=== PATIENT | male | born 1970 | race Caucasian/White ===

== ENCOUNTER 2019-01-04 13:20 | Inpatient (IN) | payer MEDICAID, OTHER ==
[2019-01-04] MEDS ORDERED: ZIPRASIDONE 20 MG VIAL IM STA (13:27)
[2019-01-04] MEDS ORDERED: LORazepam 2 MG/ML INJ IV STA (13:28)
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
[2019-01-04] MEDS ORDERED: LORazepam 2 MG/ML INJ IM STA (13:45)
[2019-01-04 16:02] LABS: Basophils % (A) 0 %; Eosinophils # (A) 0.1 k/uL (0-0.7); Eosinophils % (A) 1 %; HCT 39.9 % (39.0-53.0); HGB 13.8 gm/dL (13.0-17.5); Lymphocytes # (A) 1.1 k/uL (1.0-4.8); Lymphocytes % (A) 10 %; MCHC 34.5 g/dL (31.0-37.0); Mean Platelet Volume 7.2; Monocytes # (A) 0.5 k/uL (0-1.0); Monocytes % (A) 4 %; Neutrophils # (A) 9.4 k/uL (1.3-7.7); Neutrophils % (A) 84 %; Platelet Count 300 k/uL (150-450); RBC 4.59 m/uL (4.30-5.90); RDW 13.1 % (11.5-15.5); WBC 11.1 k/uL (3.8-10.6)
[2019-01-04 16:10] LABS: ALT 59 U/L (21-72); AST 35 U/L (17-59); Albumin 4.1 g/dL (3.5-5.0); Alcohol <10 mg/dL; Alkaline Phosphatase 74 U/L (38-126); Anion Gap 10 mmol/L; Blood Urea Nitrogen 13 mg/dL (9-20); Calcium 9.4 mg/dL (8.4-10.2); Carbon Dioxide 22 mmol/L (22-30); Chloride 107 mmol/L (98-107); Glucose 87 mg/dL (74-99); Potassium 3.5 mmol/L (3.5-5.1); Sodium 139 mmol/L (137-145); Total Bilirubin 1.1 mg/dL (0.2-1.3); Total Protein 6.9 g/dL (6.3-8.2)
[2019-01-04 17:17] LABS: Amphetamine Screen,Urine Not Detected (NotDetected); Barbiturate Screen,Urine Not Detected (NotDetected); Benzodiazepines Screen,Urine Not Detected (NotDetected); Cocaine Screen,Urine Not Detected (NotDetected); Methadone Screen, Urine Not Detected (NotDetected); Opiate Screen,Urine Not Detected (NotDetected); Oxycodone Screen, Urine Not Detected (NotDetected); Phencyclidine Screen,Urine Not Detected (NotDetected); Tricyclic Antidepressant,Urine Not Detected (NotDetected); Urn Cannabinoid Scrn Detected (NotDetected)
[2019-01-04] MEDS ORDERED: METOPROLOL SUCCINATE (ER) 50 MG TAB.ER.24H PO STA (22:14)
[2019-01-04] MEDS ORDERED: MAG HYDROX/AL HYDROX/SIMETH 30 ML CUP PO PRN (22:52)
[2019-01-04] MEDS ORDERED: MAGNESIUM HYDROXIDE 2,400 MG/10 ML CUP PO PRN (22:52)
[2019-01-04] MEDS ORDERED: ZIPRASIDONE 20 MG VIAL IM PRN (22:52)
[2019-01-05] MEDS: LORazepam 1 MG TAB PO PRN ×3 (00:39→20:53)
[2019-01-05] MEDS: ACETAMINOPHEN TAB 325 MG TAB PO PRN ×5 (00:40→22:23)
[2019-01-05 09:15] LABS: Basophils # (A) 0.1 k/uL (0-0.2); Basophils % (A) 1 %; Eosinophils # (A) 0.1 k/uL (0-0.7); Eosinophils % (A) 2 %; HCT 42.3 % (39.0-53.0); Lymphocytes # (A) 3.7 k/uL (1.0-4.8); Lymphocytes % (A) 41 %; MCH 30.2 pg (25.0-35.0); MCHC 33.1 g/dL (31.0-37.0); MCV 91.3 fL (80.0-100.0); Mean Platelet Volume 6.8; Monocytes # (A) 0.5 k/uL (0-1.0); Monocytes % (A) 6 %; Neutrophils # (A) 4.5 k/uL (1.3-7.7); Neutrophils % (A) 50 %; Platelet Count 337 k/uL (150-450); RBC 4.63 m/uL (4.30-5.90); RDW 12.9 % (11.5-15.5)
[2019-01-05 09:29] LABS: ALT 56 U/L (21-72); AST 63 U/L (17-59); Alkaline Phosphatase 79 U/L (38-126); Anion Gap 6 mmol/L; Bilirubin, Delta 0.3 mg/dL (0.0-0.2); Bilirubin,Unconjugated 0.4 mg/dL (0.0-1.1); Blood Urea Nitrogen 15 mg/dL (9-20); Calcium 9.3 mg/dL (8.4-10.2); Carbon Dioxide 30 mmol/L (22-30); Chloride 107 mmol/L (98-107); Cholesterol 128 mg/dL (<200); Glucose 105 mg/dL (74-99); HDL Cholesterol 38 mg/dL (40-60); LDL Cholesterol,Calculated 75 mg/dL (0-99); Potassium 4.4 mmol/L (3.5-5.1); Sodium 143 mmol/L (137-145); Total Bilirubin 0.7 mg/dL (0.2-1.3); Triglycerides 74 mg/dL (<150)
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
[2019-01-05] MEDS: PANTOPRAZOLE 40 MG TABLET PO SCH ×2 (10:25→16:46)
[2019-01-05] MEDS: SERTRALINE 100 MG TAB PO SCH (10:25)
--- NOTE | 2019-01-05 18:05 | P.CONS ---
History of Present Illness - Reason for Consult Consult date: 01/05/19 - History of Present Illness The patient is a 48-year-old male with a PMH of bipolar disorder presented to the ED and please custody for aggressive and disorganized behavior. As per documentation, the patient was yelling that god is good and was uncooperative with police. The patient was seen and examined in the mental health unit. He reports that he is admitted here since he praised God far too much. He notes that he had whole-body sensation after which she felt that god is going to fix all of his problems and help him fix the situation with his mother. The patient otherwise denied any active complaints including chest pain, shortness of breath, fever, chills, cough. He also denied abdominal pain, nausea, vomiting. Review of Systems Pertinent positives and negatives as discussed in HPI, a complete review of systems was performed and all other systems are negative. Past Medical History Past Medical History: Hypertension History of Any Multi-Drug Resistant Organisms: None Reported Past Surgical History: No Surgical Hx Reported Additional Past Surgical History / Comment(s): oral surgery Past Anesthesia/Blood Transfusion Reactions: No Reported Reaction Past Psychological History: Depression Smoking Status: Former smoker Past Alcohol Use History: Occasional Additional Past Alcohol Use History / Comment(s): Patient states that he drinks a "couple of beers" once a month. Past Drug Use History: Marijuana Additional Drug Use History / Comment(s): Pt states that he smokes MJ twice we ekly- a vape pen amount - Past Family History Father Family Medical History: Cancer, COPD, Coronary Artery Disease (CAD), CVA/TIA, Hyperlipidemia, Hypertension, Prostate Disorder Additional Family Medical History / Comment(s): Bladder and Prostate Cancer, Kidney Failure, Knee replacement Mother Family Medical History: CVA/TIA, Hypertension, Myocardial Infarction ([place]) Additional Family Medical History / Comment(s): Cerebal Hemorrage in 2008, Multiple surgeries Medications and Allergies Home Medications Medication Instructions Recorded Confirmed Type Metoprolol Succinate (ER) [Toprol 50 mg PO DAILY 01/04/19 01/04/19 History XL] Omeprazole [PriLOSEC] 20 mg PO BID 01/04/19 01/04/19 History Sertraline [Zoloft] 100 mg PO DAILY 01/04/19 01/04/19 History buPROPion HCL [Wellbutrin XL] 300 mg PO DAILY 01/04/19 01/04/19 History Allergies Allergy/AdvReac Type Severity Reaction Status Date / Time No Known Allergies Allergy Verified 01/05/19 00:17 Physical Exam Vitals: Vital Signs Temp Pulse Pulse Resp BP BP Pulse Ox 01/05/19 06:47 98.4 F 94 18 132/84 01/05/19 00:30 97.7 F 01/04/19 23:10 100 F H 82 16 127/71 99 01/04/19 22:39 85 16 118/65 96 Intake and Output 01/05/19 01/05/19 01/05/19 06:59 14:59 22:59 Other: Weight 89.6 kg General: non toxic, no distress, appears at stated age, normal weight Derm: no unusual rashes/lesions no unusual ecchymoses, warm, dry Head: atraumatic, normocephalic, symmetric Eyes: EOMI, no lid lag, anicteric sclera, pupils equal round reactive to light ENT: Nose and ears atraumatic, no thrush, no pharyngeal erythema Neck: No thyromegaly, no cervical lymphadenopathy, trachea midline, supple Mouth: no lip lesion, mucus membranes moist Cardiovascular: S1S2 reg, no murmur, positive posterior tibial pulse bilateral, no edema, capillary refill less than 2 seconds Lungs: CTA bilateral, no rhonchi, no rales , no accessory muscle use Abdominal: soft, nontender to palpation, no guarding, no appreciable organomegaly, normal bowel sounds Ext: no gross muscle atrophy, muscle strength 5 out of 5 in all 4 extremities grossly, no contractures, Neuro: CN II-XI grossly intact, light touch intact all 4 extremities, finger to nose within normal limits, Psych: Alert, oriented, labile mood, swings between smiling and crying Results CBC & Chem 7: 01/05/19 08:25 01/05/19 08:25 Labs: Abnormal Lab Results - Last 24 Hours (Table) 01/05/19 Range/Units 08:25 Glucose 105 H (74-99) mg/dL Delta Bilirubin 0.3 H (0.0-0.2) mg/dL AST 63 H (17-59) U/L HDL Cholesterol 38 L (40-60) mg/dL Assessment and Plan Plan: Marijuana abuse -Patient advised on a importance of cessation Bipolar disorder -As per psychiatry Thank you for allowing us to participate in the care of this patient. We will follow peripherally. Do not hesitate to contact us with questions. Someone can be reached from the [facility] hospitalist group at all hours of the day at [phone].
[2019-01-05 19:04] LABS: Hemoglobin A1C 5.6 % (4.0-6.0)
[2019-01-05] MEDS: lamoTRIgine 25 MG TAB PO SCH (20:51)
[2019-01-06] MEDS: ACETAMINOPHEN TAB 325 MG TAB PO PRN ×4 (03:59→20:56)
[2019-01-06] MEDS: SERTRALINE 100 MG TAB PO SCH (08:11)
[2019-01-06] MEDS: PANTOPRAZOLE 40 MG TABLET PO SCH ×2 (08:11→17:29)
[2019-01-06] MEDS: LORazepam 1 MG TAB PO PRN ×2 (08:14→16:46)
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
[2019-01-06] MEDS: METOPROLOL SUCCINATE (ER) 50 MG TAB.ER.24H PO SCH (09:33)
[2019-01-06] MEDS: IBUPROFEN 600 MG TAB PO PRN ×2 (09:34→16:46)
--- NOTE | 2019-01-06 14:03 | XR ---
EXAMINATION TYPE: XR chest 2V DATE OF EXAM: 01/06/2019 COMPARISON: NONE HISTORY: Pain, trauma TECHNIQUE: Frontal and lateral views of the chest are obtained. FINDINGS: There is no focal air space opacity, pleural effusion, or pneumothorax seen. The cardiac silhouette size is within normal limits. The osseous structures are intact. IMPRESSION: No acute cardiopulmonary process.
--- NOTE | 2019-01-06 14:09 | XR ---
Left shoulder HISTORY: Trauma and pain 4views of the left shoulder on 4 images correlated to chest x-ray same date Bone mineralization, joint spaces and alignment are maintained. IMPRESSION: No fracture or dislocation.
[2019-01-06] MEDS: MULTIVITAMINS, THERA 1 EACH TAB PO SCH (14:13)
[2019-01-06] MEDS: lamoTRIgine 25 MG TAB PO SCH (22:35)
[2019-01-06] MEDS: MELATONIN 5 MG TABLET PO SCH (22:35)
[2019-01-07] MEDS: LORazepam 1 MG TAB PO PRN ×3 (00:13→18:08)
[2019-01-07] MEDS: IBUPROFEN 600 MG TAB PO PRN ×2 (00:13→08:17)
[2019-01-07] MEDS: ACETAMINOPHEN TAB 325 MG TAB PO PRN ×2 (05:56→18:08)
[2019-01-07] MEDS: PANTOPRAZOLE 40 MG TABLET PO SCH ×2 (08:15→18:03)
[2019-01-07] MEDS: METOPROLOL SUCCINATE (ER) 50 MG TAB.ER.24H PO SCH (08:15)
[2019-01-07] MEDS: SERTRALINE 100 MG TAB PO SCH (08:15)
[2019-01-07] MEDS: MELOXICAM 7.5 MG TAB PO SCH ×2 (11:08→23:17)
--- NOTE | 2019-01-07 12:01 | P.PN ---
Progress Note - Text Progress Note Date: 01/07/19 Interval history: Chart reviewed and discussed with nursing staff today. Interviewed patient one-on-one and discussed his medications and his pain issues around his arms and thorax. He is still in denial why he is in a psychiatric hospital and feels that he should not be here. Mental status examination: This is a 48-year-old male who appears casual and older than his stated age. Speech and language rapid expressive soft. Attitude and behavior appears to be guarded and with Don. Mood is depressed anxious irritable and hopelessness. Affect is labile. Orientation person place and time and not situation. Thought content within normal. Risk factors he states he is not suicidal homicidal at the current time. Perception within normal denies any auditory or visual tactile hallucinations. Thought process is concrete. Concentration and to engine span and impaired per obse rvation and interview with the patient. Remote and recent memory within normal. Intelligence average. Judgment and insight fair. Plan: We'll titrate his Lamictal today to 50 mg by mouth daily at bedtime. He remains on 15 minute checks while on the mental health unit on [address] [place]. We'll follow observed for any other psychiatric medication needs for mood and thought behavior. Will follow observed.
[2019-01-07] MEDS: MULTIVITAMINS, THERA 1 EACH TAB PO SCH (12:05)
[2019-01-07] MEDS ORDERED: lamoTRIgine 25 MG TAB PO SCH (21:00)
[2019-01-07] MEDS: MELATONIN 5 MG TABLET PO SCH (23:17)
[2019-01-08] MEDS: ACETAMINOPHEN TAB 325 MG TAB PO PRN ×3 (01:24→17:14)
[2019-01-08] MEDS: LORazepam 1 MG TAB PO PRN ×3 (02:42→19:25)
[2019-01-08] MEDS: PANTOPRAZOLE 40 MG TABLET PO SCH ×2 (08:10→17:15)
[2019-01-08] MEDS: MELOXICAM 7.5 MG TAB PO SCH ×2 (08:10→22:12)
[2019-01-08] MEDS: METOPROLOL SUCCINATE (ER) 50 MG TAB.ER.24H PO SCH (08:10)
[2019-01-08] MEDS: SERTRALINE 100 MG TAB PO SCH (08:10)
[2019-01-08] MEDS: MULTIVITAMINS, THERA 1 EACH TAB PO SCH (10:38)
--- NOTE | 2019-01-08 11:42 | P.PN ---
Progress Note - Text Progress Note Date: 01/08/19 Interval history: Chart reviewed this morning and discussed with nursing staff in regards to he still has pain complaints on his left and right thoracic region from bruising. He states that the Mobic has not helped and he continues to have uncomfortable bruising over his arms and his chest region. He is going to groups and interactive and participating in uriarte milieu therapeutic environment. Mental status examination: This is a 48-year-old male who is casual and appears his stated age. Speech language is spontaneous today. Attitude and behavior appears cooperative but withdrawn in nature at times. Mood remains depressed anxious irritable. Affect lively labile in nature. Orientation person place time and situation. Thought content within normal periods risk factors denies suicidal or homicidal ideation. Perception within normal. Thought content concrete circumstantial and tangential. Concentration attention span within normal. Recent remote memory within normal intelligence is average. Judgment fair and insight fair to be still has a lack of understanding moya in the psychiatric hospital. Plan: Increase his Lamictal to 75 mg by mouth daily at bedtime for his mood stability. Ice pack for his rooster areas 20 minutes on 20 minutes off. Continue his other psychiatric medications remain on 15 minute checks on the mental health unit [address] [place] [address].
[2019-01-08] MEDS: lamoTRIgine 25 MG TAB PO SCH (22:12)
[2019-01-08] MEDS: MELATONIN 5 MG TABLET PO SCH (22:54)
[2019-01-09] MEDS: ACETAMINOPHEN TAB 325 MG TAB PO PRN ×4 (01:57→20:11)
[2019-01-09] MEDS: SERTRALINE 100 MG TAB PO SCH (08:10)
[2019-01-09] MEDS: METOPROLOL SUCCINATE (ER) 50 MG TAB.ER.24H PO SCH (08:10)
[2019-01-09] MEDS: PANTOPRAZOLE 40 MG TABLET PO SCH ×2 (08:11→16:30)
[2019-01-09] MEDS: MELOXICAM 7.5 MG TAB PO SCH ×2 (08:11→22:50)
[2019-01-09] MEDS: LORazepam 1 MG TAB PO PRN ×3 (08:16→23:46)
[2019-01-09] MEDS: MULTIVITAMINS, THERA 1 EACH TAB PO SCH (10:38)
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
[2019-01-09] MEDS: MELATONIN 5 MG TABLET PO SCH (22:50)
[2019-01-09] MEDS: lamoTRIgine 25 MG TAB PO SCH (22:50)
[2019-01-09] MEDS: QUEtiapine 50 MG TAB PO SCH (22:50)
[2019-01-10] MEDS: LORazepam 1 MG TAB PO PRN ×3 (08:05→23:17)
[2019-01-10] MEDS: MELOXICAM 7.5 MG TAB PO SCH (08:06)
[2019-01-10] MEDS: PANTOPRAZOLE 40 MG TABLET PO SCH ×2 (08:06→17:35)
[2019-01-10] MEDS: METOPROLOL SUCCINATE (ER) 50 MG TAB.ER.24H PO SCH (09:39)
[2019-01-10] MEDS: ACETAMINOPHEN TAB 325 MG TAB PO PRN ×2 (10:52→20:25)
--- NOTE | 2019-01-10 10:53 | P.PN ---
Progress Note - Text Interval history: The patient is found in his room he follows me to an interview room. He indicates that his mood is improving. He was able to sleep better last night with the Seroquel. He indicates that he has been attending some groups. Staff report that he has been cooperative. He has been demonstrating some tearfulness and group still. He feels that his mood is starting to stabilize. We reviewed his psychotropic medications as questions were answered. He reports that his physical pain is improving. Mental status exam: The patient is alert he is dressed in hospital attire. Hygiene is adequate. He continues to utilize ice packs. Eye contact is appropriate speech is fluent spontaneous nonpressured. He indicates his mood is improving. Affect is bright. He demonstrates no lability of affect during this session. He is reporting no acute suicidal ideation intent or plan as he feels safe in the hospital. He reports no homicidal ideation. He is endorsing no auditory or visual hallucinations or any specific delusions. He currently does not appear hypomanic or manic. Insight and judgment improving. Plan: The patient will continue the psychotropic medication as written. We will monitor him for safety and encourage participation in the milieu. Vital signs reviewed. He may be appropriate for discharge in approximately 2 days if clinically stable.
[2019-01-10] MEDS: MULTIVITAMINS, THERA 1 EACH TAB PO SCH (12:56)
[2019-01-10] MEDS: DICLOFENAC SODIUM GEL 100 GM TUBE TOPICAL SCH ×3 (13:51→22:33)
[2019-01-10] MEDS: MELATONIN 5 MG TABLET PO SCH (22:32)
[2019-01-10] MEDS: QUEtiapine 50 MG TAB PO SCH (22:32)
[2019-01-10] MEDS: lamoTRIgine 25 MG TAB PO SCH (22:32)
[2019-01-11 06:41] VITALS: RESP 14; TEMP 97.6
[2019-01-11] MEDS: METOPROLOL SUCCINATE (ER) 50 MG TAB.ER.24H PO SCH (08:04)
[2019-01-11] MEDS: LORazepam 1 MG TAB PO PRN (08:05)
[2019-01-11] MEDS: DICLOFENAC SODIUM GEL 100 GM TUBE TOPICAL SCH ×2 (08:05→12:45)
[2019-01-11] MEDS: PANTOPRAZOLE 40 MG TABLET PO SCH (08:05)
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
[2019-01-11 09:07] VITALS: BP 147/82; PULSE 88
[2019-01-11] MEDS: MULTIVITAMINS, THERA 1 EACH TAB PO SCH (12:45)
[2019-01-11] MEDS: ACETAMINOPHEN TAB 325 MG TAB PO PRN (12:58)
== END 2019-01-11 14:03 | disposition home or self-care (01) | DRG 885 ==
LOC: EC 13:20 → 3MHU 22:20
PROVIDERS: ADMIT Psychiatry & Neurology Psychiatry; ATTEND Psychiatry & Neurology Psychiatry
DX: F31.4 Bipolar disorder, current episode depressed, severe, without psychotic features (principal); R45.851 Suicidal ideations; F12.10 Cannabis abuse, uncomplicated; F41.9 Anxiety disorder, unspecified; F60.89 Other specific personality disorders; I10 Essential (primary) hypertension; Z78.1 Physical restraint status; Z79.899 Other long term (current) drug therapy; R07.81 Pleurodynia; Z82.3 Family history of stroke; Z82.49 Family history of ischemic heart disease and other diseases of the circulatory system; Z83.6 Family history of other diseases of the respiratory system; Z82.61 Family history of arthritis; Z80.42 Family history of malignant neoplasm of prostate; Z80.52 Family history of malignant neoplasm of bladder; Z84.1 Family history of disorders of kidney and ureter; Z71.51 Drug abuse counseling and surveillance of drug abuser; Z65.3 Problems related to other legal circumstances; Z87.891 Personal history of nicotine dependence
CPT/HCPCS: 36415; 71046; 80053; 80061; 80306; 80320; 82248; 83036; 84443; 85025; 96372; 99285